=== PATIENT | male | born 1955 | race Two or more races ===

== ENCOUNTER 2020-01-13 07:48 | Emergency (ER) | payer OTHER ==
[~2020-01-13] VITALS: Ht 162.6 cm; Wt 61.2 kg
[2020-01-13] MEDS ORDERED: METO50TA16 PO (08:24)
[2020-01-13] MEDS ORDERED: FAMO20TA8 PO (08:24)
[2020-01-13] MEDS ORDERED: ASPI81TA31 PO (08:24)
[2020-01-13] MEDS ORDERED: SITA1TAB6 PO (08:24)
[2020-01-13] MEDS ORDERED: ATOR20TA PO (08:24)
[2020-01-13] MEDS ORDERED: OMEP20TA5 PO (08:24)
[2020-01-13] MEDS ORDERED: CHLO25TA2 PO (08:24)
[2020-01-13] MEDS ORDERED: TELM80TA2 PO (08:24)
[2020-01-13] MEDS ORDERED: VITAMIN D3 PO (08:24)
--- NOTE | 2020-01-13 08:29 | NUR ---
Patient discharged to home in stable condition. Written and verbal after care instructions given. Patient verbalizes understanding of instructions. Stressed follow up or return to ER for worsening s/s.
== END 2020-01-13 08:33 | disposition home or self-care (01) ==
LOC: ER 07:48
DX: J02.9 Acute pharyngitis, unspecified (principal); E11.9 Type 2 diabetes mellitus without complications; Z79.84 Long term (current) use of oral hypoglycemic drugs; K21.9 Gastro-esophageal reflux disease without esophagitis; Z79.899 Other long term (current) drug therapy
CPT/HCPCS: A4663

== ENCOUNTER 2020-02-11 06:32 | Emergency (ER) | payer OTHER ==
[~2020-02-11] VITALS: Ht 165.1 cm; Wt 75.3 kg
[~2020-02-11 06:32] MED LIST: ASPI81TA31 PO; ATOR20TA PO; CHLO25TA2 PO; FAMO20TA8 PO; METO50TA16 PO; OMEP20TA5 PO; SITA1TAB6 PO; TELM80TA2 PO; VITAMIN D3 PO
--- NOTE | 2020-02-11 06:57 | NUR ---
PAM SHOOK at bedside for MSE
[2020-02-11] MEDS: IV NORMAL SALINE 1000 ML BAG IV ONE (07:15)
--- NOTE | 2020-02-11 07:23 | NUR ---
PT out of ER for CT.
[2020-02-11 07:28] LABS: BASOPHILS % (AUTO) 0.2 % (0.0-2.0); EOSINOPHILS # (AUTO) 0.1 K/uL (0.0-0.7); EOSINOPHILS % (AUTO) 1.6 % (0.0-7.0); HEMATOCRIT 39.7 % (36.7-47.1); HEMOGLOBIN 13.5 g/dL (12.5-16.3); LYMPHOCYTES # (AUTO) 2.1 K/uL (20.0-40.0); LYMPHOCYTES % (AUTO) 28.9 % (20.5-51.5); MEAN CORPUSCULAR HEMOGLOBIN 29.9 uug (23.8-33.4); MEAN CORPUSCULAR HGB CONC 34 g/dL (32.5-36.3); MONOCYTES # (AUTO) 0.7 K/uL (2.0-10.0); MONOCYTES % (AUTO) 9.6 % (0.0-11.0); NEUTROPHILS # (AUTO) 4.3 K/uL (1.8-8.9); NEUTROPHILS % (AUTO) 59.7 % (38.5-71.5); PLATELET COUNT (AUTO) 213 K/uL (152-348); RED BLOOD CELL COUNT(AUTO) 4.51 MIL/uL (4.06-5.63); WHITE BLOOD COUNT (AUTO) 7.2 K/uL (3.6-10.2)
[2020-02-11 07:30] LABS: *BILIRUBIN,URIN NEGATIVE (NEGATIVE); *CLARITY,URINE CLEAR (CLEAR); *COLOR,URINE YELLOW (YELLOW); *KETONES,URINE NEGATIVE (NEGATIVE); *UROBILINOGEN,URINE 0.2 E.U./dl (NORMAL); LEUKOCYTE ESTERASE ,URINE NEGATIVE (NEGATIVE); NITRITE, URINE NEGATIVE (NEGATIVE); PH,URINE 7.5 (5.0-8.0); UGLUCOSE NEGATIVE (NEGATIVE)
[2020-02-11 07:36] LABS: *BLOOD, URINE TRACE (NEGATIVE)
--- NOTE | 2020-02-11 07:40 | NUR ---
Pt is back to bed, resting, NAD noted.
[2020-02-11 07:43] LABS: CREATININE 0.9 mg/dL (0.6-1.3); POTASSIUM 3.4 mmol/L (3.5-5.1)
[2020-02-11 07:49] LABS: BILIRUBIN,DIRECT 0.1 mg/dL (0.0-0.2); BILIRUBIN,TOTAL 0.4 mg/dL (0.2-1.0)
--- NOTE | 2020-02-11 08:15 | NUR ---
IV removed. Catheter intact and site benign. Pressure and 4x4 gauze applied to site. No bleeding noted.
[2020-02-11 08:16] VITALS: BP 138/88
[2020-02-11 14:41] LABS: BACTERIA,URINE NONE SEEN /HPF (NONE SEEN); SQUAMOUS EPITHELIAL CELL,UR FEW /HPF (NONE SEEN); WBC,URINE 0-3 /HPF (0-3)
== END 2020-02-11 08:16 | disposition home or self-care (01) ==
LOC: ER 06:35
DX: R10.12 Left upper quadrant pain (principal); E78.5 Hyperlipidemia, unspecified; E11.9 Type 2 diabetes mellitus without complications; Z79.84 Long term (current) use of oral hypoglycemic drugs; I10 Essential (primary) hypertension; K21.9 Gastro-esophageal reflux disease without esophagitis
CPT/HCPCS: 36415; 70030-TC; 71045; 83690; 85025; 85730; 93005; A4663; J7030

== ENCOUNTER 2020-03-21 10:43 | Emergency (ER) | payer OTHER ==
[~2020-03-21] VITALS: Ht 165.1 cm; Wt 74.4 kg
--- NOTE | 2020-03-21 11:00 | NUR ---
at bedside to examine patient.
[2020-03-21] MEDS ORDERED: PANTOPRAZOLE SODIUM 40 MG TABLET.DR PO ONE ×2 (11:14→11:15)
[2020-03-21] MEDS ORDERED: MAGNESIUM HYDROXIDE 30 ML LIQUID UDC ONE (11:14)
[2020-03-21] MEDS ORDERED: LIDOCAINE VISCUS 2% 15 ML UDC ONE (11:14)
[2020-03-21] MEDS ORDERED: LIDOCAINE VISCUS 2% 15 ML UDC MM ONE (11:15)
[2020-03-21] MEDS ORDERED: MAG HYDROX/AL HYDROX/SIMETH 30 ML LIQUID UDC PO ONE (11:15)
[2020-03-21 11:20] LABS: BASOPHILS % (AUTO) 0.6 % (0.0-2.0); EOSINOPHILS # (AUTO) 0.2 K/uL (0.0-0.7); EOSINOPHILS % (AUTO) 3.5 % (0.0-7.0); HEMATOCRIT 38.8 % (36.7-47.1); HEMOGLOBIN 12.8 g/dL (12.5-16.3); LYMPHOCYTES # (AUTO) 1.8 K/uL (20.0-40.0); LYMPHOCYTES % (AUTO) 24.8 % (20.5-51.5); MEAN CORPUSCULAR HEMOGLOBIN 28.6 uug (23.8-33.4); MEAN CORPUSCULAR HGB CONC 33 g/dL (32.5-36.3); MEAN CORPUSCULAR VOLUME 86.5 fL (73.0-96.2); MONOCYTES # (AUTO) 0.7 K/uL (2.0-10.0); MONOCYTES % (AUTO) 9.4 % (0.0-11.0); NEUTROPHILS # (AUTO) 4.5 K/uL (1.8-8.9); NEUTROPHILS % (AUTO) 61.7 % (38.5-71.5); PLATELET COUNT (AUTO) 207 K/uL (152-348); RED BLOOD CELL COUNT(AUTO) 4.48 MIL/uL (4.06-5.63); WHITE BLOOD COUNT (AUTO) 7.2 K/uL (3.6-10.2)
[2020-03-21 11:45] LABS: BILIRUBIN,DIRECT 0.1 mg/dL (0.0-0.2); BILIRUBIN,TOTAL 0.5 mg/dL (0.2-1.0); POTASSIUM 3.6 mmol/L (3.5-5.1); TOTAL PROTEIN, SERUM 7.7 g/dL (6.4-8.2)
[2020-03-21 13:16] VITALS: BP 120/77
--- NOTE | 2020-03-21 13:21 | NUR ---
HR of 65, rr 18, saturation f 99% on RA.112/64.
--- NOTE | 2020-03-21 15:12 | NUR ---
at bedside educating pt. on lab and procedure results as well as care plan.
--- NOTE | 2020-03-21 15:17 | NUR ---
dcd instructions and copies of test results provided to patient. IV line to [facility] dcd. patient verbalized understanding of having stress test done as discussed with Dr. Arriaza. pt. left room AAOX4 vitals stable no c/of chest pain or any other discomfort, stable gait.
== END 2020-03-21 15:23 | disposition home or self-care (01) ==
LOC: ER 10:43
DX: K21.9 Gastro-esophageal reflux disease without esophagitis (principal); R07.9 Chest pain, unspecified; R00.1 Bradycardia, unspecified; E11.9 Type 2 diabetes mellitus without complications; E78.5 Hyperlipidemia, unspecified; I10 Essential (primary) hypertension; Z88.8 Allergy status to other drugs, medicaments and biological substances; Z79.82 Long term (current) use of aspirin; Z79.84 Long term (current) use of oral hypoglycemic drugs
CPT/HCPCS: 36415; 70030-TC; 71045; 85025; 85730; 93005; A4663

== ENCOUNTER 2020-06-05 05:28 | Emergency (ER) | payer MEDICARE, OTHER ==
[~2020-06-05] VITALS: Ht 165.1 cm; Wt 74.4 kg
[2020-06-05] MEDS ORDERED: NITROGLYCERIN OINT 1 GM PACKET TP ONE ×2 (05:44→05:45)
[2020-06-05] MEDS ORDERED: NITROGLYCERIN 0.4 MG/TAB BOTTLE SL ONE ×2 (05:44→05:45)
[2020-06-05] MEDS ORDERED: ASPIRIN 81 MG TAB.CHEW ONE ×2 (05:44→05:46)
[2020-06-05] MEDS ORDERED: ASPIRIN 81 MG TAB.CHEW PO ONE (05:45)
[2020-06-05 05:46] VITALS: BP 169/91
--- NOTE | 2020-06-05 05:49 | NUR ---
After 1st dose of Nitro Sublingual pain is 5/10 pressure pain. Gave 2nd dose of nitro sublingual.
--- NOTE | 2020-06-05 05:50 | NUR ---
Patient ambulated with stable gait. A/Ox4. Speech is clear, speaks in complete sentences. No acute neuro deficits at this time. 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 Patient came for c/o worsening left sided chest pain which initially started 2 weeks ago. The pain is localized, non-radiating. Denies any palpitations or pressure but does report that the pain feels sharp in characteristic. Respiratory even and unlabored, no cough no sob, no signs of acute respiratory distress noted. Denies any n/v, diarrhea, or any distress at this time. Patient in bed at lowest position, sr upx2, call light within reach. Safety precautions implemented per protocol. Patient placed on a continuous cardiac cath lab radiology technologist and will closely be observed.
[2020-06-05 05:54] LABS: BASOPHILS % (AUTO) 0.3 % (0.0-2.0); EOSINOPHILS # (AUTO) 0.2 K/uL (0.0-0.7); EOSINOPHILS % (AUTO) 2.1 % (0.0-7.0); HEMATOCRIT 41.3 % (36.7-47.1); HEMOGLOBIN 14.1 g/dL (12.5-16.3); LYMPHOCYTES # (AUTO) 2.3 K/uL (20.0-40.0); LYMPHOCYTES % (AUTO) 30.3 % (20.5-51.5); MEAN CORPUSCULAR HEMOGLOBIN 29.8 uug (23.8-33.4); MEAN CORPUSCULAR HGB CONC 34 g/dL (32.5-36.3); MEAN CORPUSCULAR VOLUME 87.2 fL (73.0-96.2); MONOCYTES # (AUTO) 0.6 K/uL (2.0-10.0); MONOCYTES % (AUTO) 8.4 % (0.0-11.0); NEUTROPHILS # (AUTO) 4.4 K/uL (1.8-8.9); NEUTROPHILS % (AUTO) 58.9 % (38.5-71.5); PLATELET COUNT (AUTO) 174 K/uL (152-348); RED BLOOD CELL COUNT(AUTO) 4.74 MIL/uL (4.06-5.63); WHITE BLOOD COUNT (AUTO) 7.4 K/uL (3.6-10.2)
--- NOTE | 2020-06-05 05:54 | NUR ---
After 2nd dose of Nitro patient states no change in pain level. Pain is 5/10 pressure. Gave 3rd dose of nitro sublingual.
--- NOTE | 2020-06-05 05:59 | NUR ---
Patient states after 3rd dose of Nitro sublingual pain is 3/10.
[2020-06-05] MEDS ORDERED: MAG HYDROX/AL HYDROX/SIMETH 30 ML LIQUID UDC PO ONE (06:00)
[2020-06-05] MEDS ORDERED: LIDOCAINE VISCUS 2% 15 ML UDC MM ONE (06:00)
[2020-06-05 06:03] LABS: CREATININE 0.8 mg/dL (0.6-1.3); POTASSIUM 3.3 mmol/L (3.5-5.1)
[2020-06-05] MEDS ORDERED: MAG HYDROX/AL HYDROX/SIMETH 30 ML LIQUID UDC ONE (06:09)
[2020-06-05] MEDS ORDERED: LIDOCAINE VISCUS 2% 15 ML UDC ONE (06:09)
[2020-06-05 06:19] LABS: BILIRUBIN,DIRECT 0.1 mg/dL (0.0-0.2); BILIRUBIN,TOTAL 0.5 mg/dL (0.2-1.0); TOTAL PROTEIN, SERUM 8.4 g/dL (6.4-8.2)
--- NOTE | 2020-06-05 06:21 | NUR ---
TELE bed held upstairs; Room 327
--- NOTE | 2020-06-05 06:32 | NUR ---
After medication administration of GI cocktail patient reported improvement in pain from a PS 3/10 to 0/10. Will continue to observe/monitor as labs are still pending.
--- NOTE | 2020-06-05 07:04 | NUR ---
Debra from [facility] states she will try and see if she can find placement for admission. Awaiting call back.
--- NOTE | 2020-06-05 07:08 | NUR ---
PT min assisst to bathroom, denies chest pain, SOB while ambulating.
--- NOTE | 2020-06-05 07:09 | NUR ---
Handoff report given to CARMINA Gavin. Patient pending 2nd troponin and possible transfer for inpatient admission.
--- NOTE | 2020-06-05 08:00 | NUR ---
Dr Navarro from [facility] called and spoke to Dr Lott re pt's plan of care. Awating transfer info. Pt placed on NPO per MD request.
--- NOTE | 2020-06-05 09:12 | NUR ---
Patient is resting comfortably in bed with eyes closed, NAD noted, VSS.
--- NOTE | 2020-06-05 11:25 | NUR ---
Recieved info from [facility] for Pt's transfer.ALS transfer to [place] to room 661 Bed2, ETA for pickup 45 min.
--- NOTE | 2020-06-05 11:33 | NUR ---
Called in report and spoke to Angelique Rn. Pt is denying chest pain/discomfort, No SOB.
--- NOTE | 2020-06-05 12:25 | NUR ---
Report given to trnsfering EMT's. Pt left ER in stable condition, all belongings sent w/ Pt.
== END 2020-06-05 12:27 | disposition short-term general hospital (02) ==
LOC: ER 05:36
DX: R07.9 Chest pain, unspecified (principal); R00.1 Bradycardia, unspecified; R94.31 Abnormal electrocardiogram [ECG] [EKG]; Z79.82 Long term (current) use of aspirin; Z79.899 Other long term (current) drug therapy; E11.9 Type 2 diabetes mellitus without complications; Z79.84 Long term (current) use of oral hypoglycemic drugs; E78.5 Hyperlipidemia, unspecified; K21.00 Gastro-esophageal reflux disease with esophagitis, without bleeding; K44.9 Diaphragmatic hernia without obstruction or gangrene; Z20.828 Contact with and (suspected) exposure to other viral communicable diseases
CPT/HCPCS: 36415; 70030-TC; 71045; 85025; 85730; 93005; A4663